=== PATIENT | female | born 1965 | race Caucasian/White ===

== ENCOUNTER 2016-12-29 07:41 | Emergency (ER) | payer OTHER ==
[~2016-12-29] VITALS: Ht 172.7 cm; Wt 108.0 kg
[2016-12-29 09:44] LABS: EOSINOPHIL (%) 0.3 % (0-5); HEMATOCRIT 42.2 % (36.0-46.0); IMMATURE GRANULOCYTE (%) 0.6 % (0.0-0.7); IMMATURE GRANULOCYTE COUNT 0.1 K/uL; INSTRUMENT ABS NEUTROPHIL CT 9.5 K/uL; LYMPHOCYTE COUNT 0.5 K/uL (1.0-2.8); MCH 30.7 PG (29.0-34.0); MCHC 33.6 G/DL (30.0-36.0); MCV 91.1 FL (83-99); MEAN PLAT.VOLUME 9.7 uM^3 (9.5-12.4); MONOCYTE (%) 5.2 % (3-12); MONOCYTE COUNT 0.6 K/uL (0-0.8); NEUTROPHIL (%) 89.1 % (45-76); NEUTROPHIL COUNT 9.5 K/uL (1.8-6.4); PLATELET COUNT 241 K/uL (156-360); RBC DIS.WIDTH-SD 40.3 % (39-53); RED BLOOD COUNT 4.63 M/uL (3.80-5.20); WHITE BLOOD COUNT 10.6 K/uL (4.1-10.2)
[2016-12-29 09:50] LABS: CHLORIDE 105 mEq/L (99-109); POTASSIUM 3.8 mEq/L (3.7-5.4); SODIUM 138 mEq/L (136-147)
[2016-12-29 09:51] LABS: GLUCOSE 115 mg/dL (70-99)
[2016-12-29 09:53] LABS: ANION GAP 10 MEQ/L (2-14)
[2016-12-29 09:55] LABS: GFR ESTIMATE (CALCULATED) > 59 mL/min/
[2016-12-29 09:56] LABS: UREA NITROGEN (BUN) 14 mg/dL (9-23)
[2016-12-29] MEDS ORDERED: CLINDAMYCIN HC300 MG PO (12:37)
[2016-12-29] MEDS ORDERED: TRAMADOL HCL50 MG PO (12:37)
[2016-12-29 12:53] VITALS: BP 138/87
== END 2016-12-29 13:02 | disposition home or self-care (01) ==
LOC: EME 07:41
PROVIDERS: Physician Assistant
DX: L02.12 Furuncle of neck (principal); Z86.14 Personal history of Methicillin resistant Staphylococcus aureus infection; Z88.0 Allergy status to penicillin; Z87.891 Personal history of nicotine dependence
CPT/HCPCS: 76536; 80048; 85025; 99281; 99284

== ENCOUNTER → 2018-02-05 | Outpatient (CLI) | payer OTHER ==
[~2018-02-05] MED LIST: CLINDAMYCIN HC300 MG PO; TRAMADOL HCL50 MG PO
== END | disposition home or self-care (01) ==
LOC: CDC
DX: Z01.810 Encounter for preprocedural cardiovascular examination (principal); R94.31 Abnormal electrocardiogram [ECG] [EKG]
CPT/HCPCS: 93000

== ENCOUNTER 2018-02-20 07:14 | Day surgery (SDC) | payer OTHER ==
[~2018-02-20] VITALS: Ht 172.7 cm; Wt 104.0 kg
[~2018-02-20 07:14] MED LIST changes: +BACTROBAN NASAL1 G1 BOTH NARES
[2018-02-20 07:44] VITALS: BP 132/91
[2018-02-20 16:51] VITALS: BP 143/84
[2018-02-20 17:52] VITALS: BP 140/81
[2018-02-20 18:45] VITALS: BP 127/77
== END 2018-02-20 18:55 | disposition home or self-care (01) ==
LOC: SDC 07:14
PROC: 0QSM0ZZ Reposition Left Tarsal, Open Approach (ICD-10-PCS; principal; 2018-02-20)
PROC: 0SGL0ZZ (ICD-10-PCS; principal; 2018-02-20)
PROC: 0LSP0ZZ Reposition Left Lower Leg Tendon, Open Approach (ICD-10-PCS; principal; 2018-02-20)
DX: M21.42 Flat foot [pes planus] (acquired), left foot (principal); M25.572 Pain in left ankle and joints of left foot; M79.672 Pain in left foot; M21.072 Valgus deformity, not elsewhere classified, left ankle; M24.572 Contracture, left ankle; M21.6X2 Other acquired deformities of left foot; M19.072 Primary osteoarthritis, left ankle and foot; M66.872 Spontaneous rupture of other tendons, left ankle and foot; M76.822 Posterior tibial tendinitis, left leg; M67.02 Short Achilles tendon (acquired), left ankle; R60.0 Localized edema; E78.5 Hyperlipidemia, unspecified; E66.9 Obesity, unspecified; Z68.33 Body mass index [BMI] 33.0-33.9, adult; Z88.0 Allergy status to penicillin; Z88.2 Allergy status to sulfonamides; Z91.040 Latex allergy status
CPT/HCPCS: 73630; 76000; 88304; C1713; J0131; J0330; J1100; J1170; J1885; J2250; J2405; J2795; J3010; Q0175; S0020